=== PATIENT | male | born 1940 | race Caucasian/White ===

== ENCOUNTER 2024-11-11 14:04 | Inpatient (IN) | payer OTHER ==
[2024-11-11 16:41] LABS: HEMATOCRIT 32.3 % (35.4-49); HEMOGLOBIN 10.3 GM/dL (11.7-16.9); MCHC 31.7 g/dl (32.0-35.9); MEAN CELL VOLUME 100.8 fl (80-96); MEAN PLT VOLUME 8.2 fl (7.5-11.1); PLATELET COUNT 158 10^3/uL (134-434); RBC 3.21 M/mm3 (4.00-5.60); RDW 14.6 % (11.9-15.9)
[2024-11-11 16:52] LABS: INR 1.08 (0.83-1.09); PROTHROMBIN TIME (PATIENT) 11.9 SEC (9.7-13.0)
[2024-11-11 17:00] LABS: CHLORIDE 102 mmol/L (98-107); POTASSIUM 5.4 mmol/L (3.5-5.1); SODIUM 137 mmol/L (136-145)
[2024-11-11 17:02] LABS: ANION GAP 9 mmol/L (4-13); BLOOD UREA NITROGEN 87.4 mg/dL (7-18); CO2 26 mmol/L (21-32); GLUCOSE,RANDOM 119 mg/dL (74-106)
[2024-11-11 17:07] LABS: CREATININE 9.4 mg/dL (0.55-1.3)
[2024-11-11 17:25] LABS: CHLORIDE 104 mmol/L (98-107); POTASSIUM 5.4 mmol/L (3.5-5.1); SODIUM 139 mmol/L (136-145)
[2024-11-11 17:28] LABS: ALBUMIN 3.2 g/dl (3.4-5.0); ANION GAP 10 mmol/L (4-13); BLOOD UREA NITROGEN 88.5 mg/dL (7-18); CO2 25 mmol/L (21-32); GLUCOSE,RANDOM 112 mg/dL (74-106)
[2024-11-11 17:31] LABS: SGOT/AST 6 U/L (15-37); SGPT/ALT 14 U/L (13-61)
[2024-11-11 17:32] LABS: BILIRUBIN,TOTAL 0.5 mg/dL (0.2-1)
[2024-11-11 17:33] LABS: TOT PROT 6.3 g/dl (6.4-8.2)
[2024-11-11 17:34] LABS: ALK PHOS 62 U/L (45-117)
[2024-11-11 17:44] LABS: CREATININE 9.5 mg/dL (0.55-1.3)
[2024-11-11] MEDS ORDERED: HEPARIN NA (PORCINE) 5,000 UNITS/ML 1ML VIAL IVPUSH PRN (19:56)
[2024-11-11] MEDS ORDERED: HEPARIN INFUSION - 25,000 UNITS/500 ML INFUS.BAG IVPB ONE (20:32)
[2024-11-11] MEDS: HEPARIN SOD,PORK IN 0.45% NACL 25,000 UNITS/500 ML INFUS.BAG IVPB SCH (20:55)
[2024-11-12 07:20] LABS: ALBUMIN 3.4 g/dl (3.4-5.0); ALK PHOS 81 U/L (45-117); ANION GAP 13 mmol/L (4-13); BILIRUBIN,TOTAL 0.7 mg/dL (0.2-1); BLOOD UREA NITROGEN 95.9 mg/dL (7-18); CALCIUM 8.7 mg/dL (8.5-10.1); CHLORIDE 102 mmol/L (98-107); CHOLESTEROL 159 mg/dL (50-200); CO2 22 mmol/L (21-32); CREATININE 10.4 mg/dL (0.55-1.3); GLUCOSE,RANDOM 90 mg/dL (74-106); HDL CHOLESTEROL 71 mg/dL (40-60); LDL CHOLESTEROL (ONLY SJRH) 73 mg/dL (5-100); MAGNESIUM 2.1 mg/dL (1.8-2.4); PHOSPHOROUS 6.7 mg/dL (2.5-4.9); POTASSIUM 5.4 mmol/L (3.5-5.1); SGOT/AST 6 U/L (15-37); SGPT/ALT 19 U/L (13-61); SODIUM 137 mmol/L (136-145); TOT PROT 6.9 g/dl (6.4-8.2)
[2024-11-12] MEDS: HEPARIN NA (PORCINE) 5,000 UNITS/ML 1ML VIAL IVPUSH PRN (09:30)
[2024-11-12] MEDS ORDERED: HEPARIN NA (PORCINE) 5,000 UNITS/ML 1ML VIAL ONE (09:36)
[2024-11-12] MEDS ORDERED: SODIUM CHLORIDE 250 ML IV PRN (09:44)
[2024-11-12] MEDS: oxyCODONE HCL 5 MG TABLET PO PRN (09:49)
[2024-11-12] MEDS: SACUBITRIL/VALSARTAN 24 MG-26 MG TABLET PO SCH (09:50)
[2024-11-12] MEDS: CARVEDILOL 6.25 MG TABLET (FP) PO SCH (09:50)
[2024-11-12] MEDS: EPOETIN ALFA-EPBX 4,000 UNIT/ML VIAL IVPUSH ONE (14:17)
[2024-11-12 16:56] VITALS: BMI 30.7
[2024-11-12] MEDS: ACETAMINOPHEN 1000 MG/100 ML BAG IVPB PRN (21:36)
[2024-11-13 08:01] LABS: INR 1.1 (0.83-1.09)
[2024-11-13 08:20] LABS: BASO % 0.6 % (0-2.0); EOS % 2.4 % (0-4.5); HEMATOCRIT 30.1 % (35.4-49); HEMOGLOBIN 9.9 GM/dL (11.7-16.9); LYMPH % 15.1 % (8-40); MCH 32.9 pg (25.7-33.7); MCHC 32.7 g/dl (32.0-35.9); MEAN CELL VOLUME 100.6 fl (80-96); MEAN PLT VOLUME 8.7 fl (7.5-11.1); MONO % 12.6 % (3.8-10.2); NEUT % 69.3 % (42.8-82.8); PLATELET COUNT 141 10^3/uL (134-434); RBC 2.99 M/mm3 (4.00-5.60); RDW 15.1 % (11.9-15.9); WHITE BLOOD COUNT 4.4 K/mm3 (4.0-10.0)
[2024-11-13 08:23] LABS: POTASSIUM 4.9 mmol/L (3.5-5.1)
[2024-11-13 08:25] LABS: ALBUMIN 3.2 g/dl (3.4-5.0); CALCIUM 8.6 mg/dL (8.5-10.1); MAGNESIUM 1.8 mg/dL (1.8-2.4)
[2024-11-13 08:30] LABS: BILIRUBIN,TOTAL 0.6 mg/dL (0.2-1); TOT PROT 6.1 g/dl (6.4-8.2)
[2024-11-13 08:34] LABS: BLOOD UREA NITROGEN 49.1 mg/dL (7-18)
[2024-11-13] MEDS ORDERED: LIDOCAINE HCL 1%, 10 MG/ML (20ML VIAL) ONE (10:00)
[2024-11-13] MEDS ORDERED: HEPARIN NA (PORCINE) 5,000 UNITS/ML 1ML VIAL ONE ×2 (10:00→12:17)
[2024-11-13] MEDS ORDERED: MIDAZOLAM HCL 2 MG/2 ML SINGLE DOSE VIAL ONE (10:26)
[2024-11-13] MEDS ORDERED: SODIUM CHLORIDE 250 ML IV PRN (10:32)
[2024-11-13] MEDS: ceFAZolin SODIUM 1 GM VIAL IVPB ONE ×2 (10:55)
[2024-11-13] MEDS: LIDOCAINE HCL 1%, 10 MG/ML (20ML VIAL) INF ONE ×2 (11:03)
[2024-11-13] MEDS: HEPARIN NA (PORCINE) 5,000 UNITS/ML 1ML VIAL SQ ONE ×2 (11:05)
[2024-11-13] MEDS ORDERED: PROPOFOL 20 ML ONE (12:34)
[2024-11-13] MEDS ORDERED: PROTAMINE SULFATE 50 MG/5 ML VIAL ONE (12:49)
[2024-11-13] MEDS ORDERED: oxyCODONE HCL 5 MG TABLET PO PRN ×2 (13:36→14:26)
[2024-11-13] MEDS: MAGNESIUM OXIDE 400 MG TABLET (FP) PO ONE ×2 (13:40→15:20)
[2024-11-13] MEDS ORDERED: ACETAMINOPHEN 325 MG TABLET (FP) PO PRN (14:26)
[2024-11-13] MEDS: oxyCODONE HCL 5 MG TABLET PO PRN (19:23)
[2024-11-13] MEDS: SACUBITRIL/VALSARTAN 24 MG-26 MG TABLET PO SCH (21:20)
[2024-11-13] MEDS: APIXABAN 2.5 MG TABLET PO SCH (21:20)
[2024-11-13] MEDS: CARVEDILOL 6.25 MG TABLET (FP) PO SCH (21:20)
[2024-11-14 07:17] VITALS: TEMP 97.8
[2024-11-14 07:33] LABS: BASO % 0.5 % (0-2.0); EOS % 1.9 % (0-4.5); HEMATOCRIT 30.4 % (35.4-49); HEMOGLOBIN 9.8 GM/dL (11.7-16.9); LYMPH % 8.2 % (8-40); MCH 32.6 pg (25.7-33.7); MCHC 32.4 g/dl (32.0-35.9); MEAN CELL VOLUME 100.6 fl (80-96); MEAN PLT VOLUME 8.7 fl (7.5-11.1); MONO % 11.3 % (3.8-10.2); NEUT % 78.1 % (42.8-82.8); PLATELET COUNT 136 10^3/uL (134-434); RBC 3.02 M/mm3 (4.00-5.60); RDW 15.3 % (11.9-15.9); WHITE BLOOD COUNT 5.9 K/mm3 (4.0-10.0)
[2024-11-14 07:42] LABS: CHLORIDE 101 mmol/L (98-107); POTASSIUM 5.3 mmol/L (3.5-5.1); SODIUM 135 mmol/L (136-145)
[2024-11-14 07:48] LABS: CALCIUM 8.5 mg/dL (8.5-10.1)
[2024-11-14 07:49] LABS: ANION GAP 6 mmol/L (4-13); BLOOD UREA NITROGEN 59.8 mg/dL (7-18); CO2 29 mmol/L (21-32); GLUCOSE,RANDOM 106 mg/dL (74-106)
[2024-11-14 07:50] LABS: SGOT/AST 6 U/L (15-37); SGPT/ALT 14 U/L (13-61)
[2024-11-14 07:52] LABS: BILIRUBIN,TOTAL 0.5 mg/dL (0.2-1); TOT PROT 6.1 g/dl (6.4-8.2)
[2024-11-14 07:53] LABS: ALK PHOS 70 U/L (45-117)
[2024-11-14 07:54] LABS: CREATININE 8.9 mg/dL (0.55-1.3)
[2024-11-14] MEDS ORDERED: SODIUM CHLORIDE 250 ML IV PRN (09:34)
[2024-11-14 09:39] VITALS: RESP 18
[2024-11-14] MEDS ORDERED: APIXABAN 2.5 MG TABLET PO SCH (10:00)
[2024-11-14] MEDS ORDERED: EPOETIN ALFA-EPBX 4,000 UNIT/ML VIAL SQ ONE (10:32)
[2024-11-14] MEDS: EPOETIN ALFA-EPBX 4,000 UNIT/ML VIAL SQ ONE (10:45)
[2024-11-14 12:47] VITALS: BP 121/79; PULSE 83
[2024-11-14] MEDS: ASPIRIN 81 MG CHEWABLE TABLETS PO SCH (13:18)
[2024-11-23 17:07] LABS: RENIN ACTIVITY(PRA) 2.984 ng/mL/hr (0.167-5.380)
== END 2024-11-14 15:25 | disposition home or self-care (01) | DRG 270 ==
LOC: JER 14:04 → JERBED 21:38 → OBSVTOIN 23:31 → J4W 11-12 16:09
PROVIDERS: ADMIT Internal Medicine; ATTEND Nurse Practitioner Acute Care
PROC: 5A1D70Z Performance of Urinary Filtration, Intermittent, Less than 6 Hours Per Day (ICD-10-PCS; 2024-11-12)
PROC: 047K3ZZ Dilation of Right Femoral Artery, Percutaneous Approach (ICD-10-PCS; 2024-11-13)
PROC: 047H3ZZ Dilation of Right External Iliac Artery, Percutaneous Approach (ICD-10-PCS; 2024-11-13)
PROC: 047K3ZZ Dilation of Right Femoral Artery, Percutaneous Approach (ICD-10-PCS; 2024-11-13)
PROC: 047M3ZZ Dilation of Right Popliteal Artery, Percutaneous Approach (ICD-10-PCS; 2024-11-13)
PROC: 047P3ZZ Dilation of Right Anterior Tibial Artery, Percutaneous Approach (ICD-10-PCS; 2024-11-13)
PROC: 047K3DZ Dilation of Right Femoral Artery with Intraluminal Device, Percutaneous Approach (ICD-10-PCS; 2024-11-13)
PROC: 04CK3ZZ Extirpation of Matter from Right Femoral Artery, Percutaneous Approach (ICD-10-PCS; principal; 2024-11-13 09:30)
PROC: 5A1D70Z Performance of Urinary Filtration, Intermittent, Less than 6 Hours Per Day (ICD-10-PCS; 2024-11-14)
DX: I70.201 Unspecified atherosclerosis of native arteries of extremities, right leg (principal); N18.6 End stage renal disease; I13.2 Hypertensive heart and chronic kidney disease with heart failure and with stage 5 chronic kidney disease, or end stage renal disease; I50.22 Chronic systolic (congestive) heart failure; Z99.2 Dependence on renal dialysis; E87.5 Hyperkalemia; I99.8 Other disorder of circulatory system; E27.9 Disorder of adrenal gland, unspecified; H91.93 Unspecified hearing loss, bilateral; M54.30 Sciatica, unspecified side
CPT/HCPCS: 36415; 71046-TC-FY; 75635-TC; 76000-TC-FY; 80048; 80053; 80061; 82088; 83036; 83735; 84100; 84244; 84484; 85025; 85027; 85610; 85730; 86704; 86803; 87340; 87517; 93005; 93010; 93922; 93925-TC; 93978; 94760; 97116-GP; 97161-GP; 99285-25; C1769; C1894; G0378; J0131; J1644; Q5106